=== PATIENT | male | born 1960 | race Two or more races ===

== ENCOUNTER → 2024-01-08 | Outpatient (REF) | payer MEDICARE, OTHER, SELFPAY | LOC: DHSLP | PROVIDERS: ATTENDING PHYSICIAN Internal Medicine Interventional Cardiology; FAMILY PHYSICIAN Family Medicine | DX: G47.19 Other hypersomnia (principal); R06.83 Snoring | CPT/HCPCS: 95800 ==

== ENCOUNTER → 2024-01-28 12:54 | Outpatient (REF) | payer MEDICARE, OTHER, SELFPAY | LOC: DHCBS HW 12:54 | PROVIDERS: ATTENDING PHYSICIAN Internal Medicine Interventional Cardiology; FAMILY PHYSICIAN Family Medicine | DX: E78.00 Pure hypercholesterolemia, unspecified (principal); I10 Essential (primary) hypertension; R06.83 Snoring | CPT/HCPCS: 93306; 93320 ==

== ENCOUNTER 2024-08-18 18:23 | Emergency (ER) | payer MEDICARE, OTHER, SELFPAY ==
[2024-08-18 18:25] VITALS: BP 173/94
[2024-08-18 18:48] VITALS: BP 150/64
--- NOTE | 2024-08-18 18:48 | ED.GENMED ---
History of Present Illness
General
Chief Complaint: Flank Pain
Source: patient
Time Seen by Provider: 08/18/24 18:42
History of Present Illness
History of Present Illness:
64yoM with no significant past medical history presenting with his for evaluation of flank pain. He was sitting on the couch this afternoon around 1pm when he had an abrupt onset of R flank pain. The pain is severe and radiates to the groin. He
had several episodes of vomiting prior to arrival. The pain seemed to resolve but then recurred prompting him to come to the ED. No prior history of similar pains. He reports urinating several times since his pain began but he is urinating in small
amounts at a time. No chest pain or shortness of breath. No previous abdominal surgeries.
Phy Exam
Physical Exam
Physical Exam:
Appears uncomfortable 2/2 pain, non-toxic
General Physical Exam
General Presentation: well appearing and moderate distress
General age: appears stated age
General Skin: warm and dry
General Habitus: normal
General Mental: alert
ENT Exam
ENT Exam: normocephalic
Cardiovascular Exam
Cardiovascular Exam: regular rate/rhythm
Pulmonary Exam
Pulmonary Exam: lungs clear, no respiratory distress, no crackles and no wheezing
Gastrointestinal Exam
Gastrointestinal Exam: non tender, soft, non distended and no cva tenderness
[place] Coma Scale
Eye Opening: Spontaneous
Verbal Response: Oriented
Motor Response: Obeys Commands
GCS Total Score: 15
Skin Exam
Skin Exam: normal color and warm/dry
Psychiatric Exam
Psychiatric Exam: normal mood/affect
Course
Orders/Labs/Results
Orders:
Orders
08/18/24 18:47
0.9% Sodium Chloride 1000 ml [Nss] 1,000 ml IV BOLUS
HYDROmorphone [Dilaudid] 0.5 mg IV NOW STA
Ketorolac [Toradol] 15 mg IV NOW STA
Ondansetron Injectable [Zofran] 4 mg IV NOW STA
08/18/24 18:48
CT Abd/pel Without Iv Or Oral Urgent
Comment:
Reason For Exam: R flank pain
08/18/24 19:06
Complete Blood Count/With Diff Urgent
Comprehensive Metabolic Panel Urgent
08/18/24 20:03
Urinalysis Reflex To Culture Urgent
Date Specimen was Collected: 08/18/24
Time Specimen was Collected: 20:02
Urine Microscopic Reflex Cult Urgent
08/18/24 20:16
Tamsulosin [Flomax] 0.4 mg PO NOW STA
Abnormal Lab Results
08/18/24 08/18/24
19:06 20:03
WBC 12.0 H 10^3/uL
(4.8-10.8)
MCH 31.1 H pg
(27.0-31.0)
MPV 11.0 H fL
(7.4-10.4)
Abs Immat Gran (auto) 0.1 H 10^3/uL
(0-0.05)
Absolute Neuts (auto) 10.2 H 10^3/uL
(1.4-6.5)
Absolute Lymphs (auto) 1.1 L 10^3/uL
(1.2-3.4)
Neutrophils % 85.3 H %
(42.2-75.2)
Lymphocytes % 8.9 L %
(20.5-51.1)
BUN 22 H mg/dl
(9-20)
Glucose 114 H mg/dl
(70-99)
ALT 53 H U/L
(0-50)
Ur Occult Blood Reflex 4+ A
(Negative)
Urine RBC 50-60 A /HPF
(0-2)
Urine Bacteria (Reflex) Few A
(Negative)
08/18/24 19:06
08/18/24 19:06
Vital Signs
Initial and Last Documented VS:
Initial Vital Signs
Temp Pulse Resp BP Pulse Ox
97.6 F 58 16 173/94 99
08/18/24 18:25 08/18/24 18:25 08/18/24 18:25 08/18/24 18:25 08/18/24 18:25
Last Documented Vital Signs
Temp Pulse Resp BP Pulse Ox
97.6 F 60 18 137/79 99
08/18/24 18:25 08/18/24 20:58 08/18/24 20:58 08/18/24 19:53 08/18/24 20:58
MDM/Problems Addressed
Differential Diagnosis Includes:
64yoM here with R flank pain that began abruptly this afternoon. Radiates to the groin. +Nausea and vomiting. He appears uncomfortable on exam but is non-toxic. He is hypertensive with otherwise normal vital signs. No abdominal or CVA tenderness
on exam. Differential diagnosis includes but is not limited to: Kidney stone, appendicitis, doubt but consider AAA
Initial ED plan: Check CBC, CMP, UA, and CT abdomen. IV Toradol, Dilaudid, Zofran, and fluid bolus for symptoms.
*Critical Care Note
Total Time (30-74mins, 75-104mins- exclusive of procedures): Not Applicable
Update Note
Update Note:
Imaging shows a 2 mm stone at the R UVJ with mild hydronephrosis. Renal function stable. UA with microscopic hematuria but no signs of infection. Pain is controlled on reassessment. No indication for hospitalization at this time. Supportive
care discussed including hydration, urine straining, and Flomax. Prescriptions provided for Zofran and oxycodone. Advised f/u with urology. ED return precautions discussed including uncontrolled pain and fevers. He expressed understanding and is
agreeable to plan. Patient discharged in stable condition.
ED Attending Note
-
Portions of this chart may have been created with voice recognition software.� Occasional wrong word or��sound alike� substitutions may have occurred due to the inherent limitations of voice recognition software.
Discharge Plan
Departure
Patient Disposition: Home (Routine Discharge)
Date of Disposition: 08/18/24
Time of Disposition: 20:37
Patient with high blood pressure during this ER visit?: Yes
Discharge Problem:
Calculus of distal right ureter
Instructions: Kidney Stones (DC), How to Strain Your Urine
Prescriptions:
New
ondansetron 4 mg tablet,disintegrating
4 mg PO Q6H PRN (Reason: nausea and vomiting) Qty: 20 0RF
tamsulosin [Flomax] 0.4 mg capsule
0.4 mg PO HS Qty: 7 0RF
oxycodone 5 mg tablet
5 mg PO Q6H PRN (Reason: Pain) Qty: 8 0RF
Referrals:
Arnoldo Du MD [Active] -
Jamie Talavera DO [Family Provider] -
Activity Restrictions/Additional Instructions:
Drink plenty of fluids. Take Flomax and strain your urine until stone has passed.
Take Tylenol 650mg and ibuprofen 600mg every 6 hours as needed for pain. Take oxycodone only as needed for severe breakthrough pain. Take Zofran as needed for nausea.
Please call tomorrow to schedule a follow-up with urology.
Return to the ER with any worsening symptoms, uncontrolled pain, fevers.
Interventions
Interventions:
*Risk Screen - Suicide Last Done: 08/18/24 19:50
*General Assessment Last Done: 08/18/24 19:50
*Neglect/Abuse Screening Last Done: 08/18/24 19:50
ED- Fall Risk Assessment Last Done: 08/18/24 19:50
*ED COVID-19 Vaccine History Last Done: 08/18/24 19:50
*Nursing Disposition Last Done: 08/18/24 20:58
YF-Fvovjo-Qfovqrawla Assessment Last Done: 08/18/24 19:50
ED-Male Genitourinary Assessment Last Done: 08/18/24 19:50
Discharge Date and Time
Discharge Date/Time: 08/18/24 20:59
Print Language: FRISIAN
[2024-08-18] MEDS: DILAUDID 0.5 MG IV (18:57)
[2024-08-18] MEDS: TORADOL 15 MG IV (18:58)
[2024-08-18] MEDS: ZOFRAN 4 MG IV (18:58)
[2024-08-18] MEDS: NSS 1000 IV (18:58)
[2024-08-18 19:15] LABS: % Basophils 0.3 % (0-2); % Eosinophils 0.2 % (0-6); % Immature Granulocytes 0.4 % (0-0.5); % Lymphocytes 8.9 % (20.5-51.1); % Monocytes 4.9 % (1.7-9.3); % Neutrophils 85.3 % (42.2-75.2); Absolute Immature Granulocytes 0.1 10^3/uL (0-0.05); Absolute Lymphocytes 1.1 10^3/uL (1.2-3.4); Absolute Monocytes 0.6 10^3/uL (0.1-0.6); Absolute Neutrophils 10.2 10^3/uL (1.4-6.5); Hemoglobin 16.2 g/dL (13.0-18.0); Mean Corp Hgb Conc. 34.5 g/dL (33.0-37.0); Mean Corpuscular Hgb 31.1 pg (27.0-31.0); Mean Corpuscular Volume 90.2 fL (80.0-94.0); Nucleated Red Blood Cells % 0 % (-); Platelet Count 227 10^3/uL (130-400); Red Blood Cell Count 5.21 10^6/uL (4.70-6.10); Red Cell Dist. Width 12.7 % (11.5-14.5)
[2024-08-18 19:35] LABS: ALT (SGPT) 53 U/L (0-50); AST (SGOT) 44 U/L (17-59); Alkaline Phosphatase 103 U/L (38-126); Blood Urea Nitrogen 22 mg/dl (9-20); Calcium 10.2 mg/dl (8.4-10.2); Carbon Dioxide 22 mmol/L (22-30); Chloride 105 mmol/L (98-107); Glucose 114 mg/dl (70-99); Potassium 4.5 mmol/L (3.5-5.1); Sodium 142 mmol/L (135-145); Total Bilirubin 0.7 mg/dl (0.2-1.3); Total Protein 8.1 g/dl (6.3-8.2); eGFR > 60.00
[2024-08-18 19:36] VITALS: BMI 35.9
[2024-08-18 19:49] VITALS: BP 137/79
[2024-08-18 19:53] VITALS: BP 137/79
[2024-08-18 20:10] LABS: Urine Albumin Trace (Neg - Trace); Urine Bilirubin Negative (Negative); Urine Character Clear (Clear); Urine Color Yellow; Urine Glucose Negative (Negative); Urine Ketone Negative (Negative); Urine Leukocyte Negative (Negative); Urine Nitrite Negative (Negative); Urine Occult Blood 4+ (Negative); Urine Specific Gravity 1.025 (<1.030); Urine Urobilinogen Negative (Neg - 1+)
[2024-08-18 20:19] LABS: Urine Bacteria Few (Negative); Urine Red Blood Cell 50-60 /HPF (0-2)
[2024-08-18] MEDS: FLOMAX 0.4 MG PO (20:56)
== END 2024-08-18 20:59 | disposition home or self-care (01) ==
LOC: EMR 18:23
PROVIDERS: Physician Assistant; EMERGENCY PHYSICIAN Student in an Organized Health Care Education/Training Program; FAMILY PHYSICIAN Family Medicine
DX: R10.9 Unspecified abdominal pain (principal); R11.2 Nausea with vomiting, unspecified
CPT/HCPCS: 99284; 96374; 96375; 96361; 74176; 80053; 81003; 81015; 85025

== ENCOUNTER → 2024-09-14 04:00 | Outpatient (REF) | payer MEDICARE, OTHER, SELFPAY | LOC: DHSLP 04:00 | PROVIDERS: ATTENDING PHYSICIAN Internal Medicine; FAMILY PHYSICIAN Family Medicine | DX: G47.33 Obstructive sleep apnea (adult) (pediatric) (principal) | CPT/HCPCS: 95800 ==

== ENCOUNTER → 2025-06-19 06:50 | Outpatient (REF) | payer MEDICARE, OTHER, SELFPAY | LOC: MRI 06:50 | PROVIDERS: ATTENDING PHYSICIAN Physician Assistant Surgical; FAMILY PHYSICIAN Family Medicine | DX: M54.16 Radiculopathy, lumbar region (principal); R20.2 Paresthesia of skin; M47.816 Spondylosis without myelopathy or radiculopathy, lumbar region | CPT/HCPCS: 72148 ==